=== PATIENT | female | born 1940 | race Caucasian/White ===

== ENCOUNTER → 2016-09-26 | Outpatient (CLI) | payer OTHER, MEDICARE ==
[~2016-09-26] MED LIST: ASCO1CAP3 PO; ASPI81TA28 PO; CALC-20 PO; LEVO50TA6 PO; LISI-461 PO; LOVA40TA4 PO; MULTTAB5 PO; OYST500T47 PO; TAMO20TA47 PO
--- NOTE | 2016-09-26 12:46 | MAMMOGRAPHY REPORT ---
UNILATERAL LEFT DIGITAL SCREENING MAMMOGRAM TOMOSYNTHESIS WITH CAD: 09/26/2016 CLINICAL HISTORY: Asymptomatic. Personal history of breast cancer. TECHNIQUE: Breast tomosynthesis in addition to standard 2D mammography was performed. Current study was also evaluated with a Computer Aided Detection (CAD) system. Left CC and MLO 2D and tomosynthe sis images were obtained. COMPARISON: Comparison is made to exams dated: 09/24/2015 mammogram, 08/29/2013 mammogram, 08/30/2014 mammogram, 08/25/2011 mammogram, 08/14/2010 mammogram, and 08/13/2009 mammogram - [facility]. BREAST COMPOSITION: The tissue of the left breast is almost entirely fatty. FINDINGS: There are no suspicious masses, calcifications, or areas of architectural distortion note d in the left breast. There has been no significant interval change compared to prior exams. Scatt ered benign-appearing calcifications are stable. Nodular asymmetry in the left medial breast is sta ble dating back to at least the 2009 exam. IMPRESSION: ACR BI-RADS CATEGORY 1: NEGATIVE There is no mammographic evidence of malignancy. A 1 year screening mammogram is recommended. The p atient will receive written notification of the results. Approximately 10% of breast cancers are not detected with mammography. A negative mammographic repor t should not delay biopsy if a clinically suggestive mass is present. Antonietta Mireles M.D. ah/:09/26/2016 08:48:42 Care Administrative Tech: Gia CHRISTY(Andriy)(Mirza), [facility] letter sent: Normal 1/2 BI-RADS Code: ACR BI-RADS Category 1: Negative
== END | disposition home or self-care (01) ==
LOC: C.MAMM 08:15
PROVIDERS: ATTEND Nurse Practitioner
DX: Z12.31 Encounter for screening mammogram for malignant neoplasm of breast (principal); Z85.3 Personal history of malignant neoplasm of breast; Z90.11 Acquired absence of right breast and nipple

== ENCOUNTER → 2017-05-29 | Outpatient (CLI) | payer OTHER, MEDICARE ==
[2017-05-29 12:16] LABS: BASO % 0.4 %; BASO ABS # 0.04 K/uL (0-0.2); COMPLETE YES; EOS % 1.5 %; HEMATOCRIT 42.5 % (37-47); IG% 0.3 %; LYMPH % 20.2 %; LYMPH ABS # 1.96 K/uL (1.2-3.4); MEAN CELL VOLUME 92.4 fL (80-100); MEAN CORPUSCULAR HEMOGLOBIN 29.3 pg (25-34); MEAN CORPUSCULAR HGB CONC 31.8 g/dl (32-36); MEAN PLATELET VOLUME 10.3 fL (7.4-10.4); NEUT % 71.6 %; PLATELET COUNT 276 K/uL (130-400); WHITE BLOOD COUNT 9.71 K/uL (4.8-10.8)
[2017-05-29 12:50] LABS: ESTIMATED AVERAGE GLUCOSE 117 mg/dl; HA1C FLAG Normal (Normal)
[2017-05-29 13:08] LABS: ALT/SGPT 37 U/L (12-78); BLOOD UREA NITROGEN 18 mg/dl (7-18); BUN/CREATININE RATIO 19.6 (10-20); CALCIUM 10.1 mg/dl (8.5-10.1); CARBON DIOXIDE 28 mmol/L (21-32); CHLORIDE 105 mmol/L (98-107); CHOLESTEROL 168 mg/dl (0-200); CREATININE 0.92 mg/dl (0.60-1.20); GLUCOSE 96 mg/dl (70-99); POTASSIUM 4.8 mmol/L (3.5-5.1); SODIUM 138 mmol/L (136-145)
[2017-05-29 13:17] LABS: ALB/GLOB RATIO 1.3 (0.9-2); ALKALINE PHOSPHATASE 69 U/L (45-117); AST/SGOT 24 U/L (15-37); CHOLESTEROL/HDL RATIO 3.5; HDL CHOLESTEROL 48 mg/dl; LDL CHOLESTEROL CALCULATED 76 mg/dl; TRIGLYCERIDES 221 mg/dl (0-150); VERY LOW DENSITY LIPOPROT CALC 44 mg/dl
== END | disposition home or self-care (01) ==
LOC: C.LABBFT 08:07
PROVIDERS: ATTEND Internal Medicine
DX: I10 Essential (primary) hypertension (principal); E03.9 Hypothyroidism, unspecified; E78.5 Hyperlipidemia, unspecified; R73.01 Impaired fasting glucose

== ENCOUNTER 2017-06-25 08:47 | Emergency (ER) | payer OTHER, MEDICARE ==
[~2017-06-25] VITALS: Ht 157.5 cm; Wt 65.0 kg
[~2017-06-25 08:47] MED LIST changes: -ASCO1CAP3 PO
[2017-06-25 08:52] VITALS: TEMP 36.5; Ht 157.5 cm; Wt 65.0 kg
--- NOTE | 2017-06-25 09:17 | EMERGENCY ROOM VISIT NOTE ---
History Report prepared by Kirby: Yuliya Pizarro Under the Supervision of: Dr. Humza Currie M.D. First contact with patient: 09:00 Chief Complaint: LEG PAIN,LEG INJURY Stated Complaint: LEFT LEG PAIN History of Present Illness The patient is a 76 year old female who presents to the Emergency Room with complaints of intermittent left knee pain that began last evening around 1800. She currently rates her discomfort as a 1/10 in severity. The patient states that last evening she walked down three steps and began noticing cracking and snapping to her left knee. She states that she only notices it with certain movements. The patient states that she previously had Cortizone shots in her left knee at [facility]. She states that she notices the cracking when she goes from standing to sitting. The patient denies any fall. Source of History: patient Onset: 1800 last evening Position: knee (left) Symptom Intensity: 1/10 Quality: other (cracking, snapping) Timing: intermittent Modifying Factors (Worsening): other (standing to sitting) Review of Systems See HPI for pertinent positives & negatives. A total of 6 systems reviewed and were otherwise negative. 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 (2) Hx Of Breast Malignancy (3) Hyperlipidemia Nec/Nos (4) Hypertension Nos (5) Hypothyroidism Nos Surgical Problems: (1) Acquired Absence Of Breast And Nipple Family History Heart disease Hypertension Social History Smoking Status: Never Smoker Alcohol Use: none Marital Status: Housing Status: lives with significant other Occupation Status: unemployed Current/Historical Medications Scheduled Ascorbic Acid (Vitamin C), 500 MG PO DAILY Aspirin (Aspirin Ec), 81 MG PO EVERY OTHER DAY Calcium Carbonate-Vitamin D (Calcium 600 + D), 1 TAB PO QPM Levothyroxine Sodium (Levothyroxine Sodium), 50 MCG PO QAM Lisinopril (Zestril), 10 MG PO QPM Lovastatin (Mevacor), 40 MG PO AT LUNCH Multiple Vitamins W/ Minerals (Centrum), 1 TAB PO AT LUNCH Allergies Coded Allergies: No Known Allergies (Unverified , 06/18/15) Physical Exam Vital Signs Date Time Temp Pulse Resp B/P (MAP) Pulse Ox O2 Delivery O2 Flow Rate FiO2 06/25/17 10:23 82 16 121/55 98 06/25/17 08:52 36.5 100 20 142/70 98 Room Air Physical Exam GENERAL: Patient is in no acute distress. EXTREMITIES: Strong distal pulses in left lower extremity, foot is warm, knee appears stable, she has tenderness over the medial collateral ligaments, and the area of medial meniscus, no joint effusion, patella is nontender. NEUROLOGIC: Oriented x 3, no acute motor or sensory deficits, no focal weakness. Medical Decision & Procedures ER Provider Diagnostic Interpretation: X-ray results as stated below per interpretation by me and the radiologist: L KNEE 3 VIEWS CLINICAL HISTORY: Left knee pain. COMPARISON: Left knee radiographs January 06, 2016. FINDINGS: Alignment of the left knee is anatomic. Calcific/ossific densities along the medial and lateral femoral condyles are chronic. These were present on prior exam. No fracture or suspicious osseous lesion is present. There is mild joint space narrowing and osteophytosis of the patellofemoral compartment. A small left knee joint effusion is present. Spurring of the superior pole of the patella is noted. IMPRESSION: 1. No acute fracture. 2. Small left knee joint effusion. 3. 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 Electronically signed by: Pacheco Roberto M.D. 06/25/2017 9:33 AM Dictated Date/Time: 06/25/2017 9:31 AM ED Course 0901: The patient was evaluated in room B2. A complete history and physical exam was performed. 1008: I reevaluated the patient and she is resting comfortably. I discussed the exam findings with her and I discussed the treatment plan. She verbalized complete understanding and agreement. She is ready to go home. Medical Decision The patient is a 76 year old female who presents to the ED with complaints of left knee pain. Differential diagnoses considered include Meniscus or ligament injury, joint effusion, fracture, strain. Patient presents with some pain primarily in the medial left knee. This began as she was walking downstairs, there was no fall. On exam, she was neurovascularly intact. Films of the knee show some arthritis and chronic change, no fracture, no large joint effusion. The patient's knee didn't seem stable by my exam. She is going to use Advil and ice, I have referred her to orthopedics for the possibility of ligament or meniscus injury. She is being discharged. Medication Reconcilliation Current Medication List: was personally reviewed by me Blood Pressure Screening Patient's blood pressure: Elevated blood pressure Blood pressure disposition: Elevated BP felt to be situational, Did not require urgent referral Impression Primary Impression: Left knee pain Scribe Attestation The scribe's documentation has been prepared under my direction and personally reviewed by me in its entirety. I confirm that the note above accurately reflects all work, treatment, procedures, and medical decision making performed by me. Departure Information Dispostion Home / Self-Care Referrals Kb Beach M.D. (PCP) Jerod Akers M.D. Forms HOME CARE DOCUMENTATION FORM, IMPORTANT VISIT INFORMATION Patient Instructions My [facility] [address] Additional Instructions ice may help otc motrin for a few days may help call orthopedics today for an appt no fractures by film today try to stay off your feet and rest the knee
--- NOTE | 2017-06-25 09:34 | DIAGNOSTIC IMAGING REPORT ---
L KNEE 3 VIEWS CLINICAL HISTORY: Left knee pain. COMPARISON: Left knee radiographs January 06, 2016. FINDINGS: Alignment of the left knee is anatomic. Calcific/ossific densities along the medial and lateral femoral condyles are chronic. These were present on prior exam. No fracture or suspicious osseous lesion is present. There is mild joint space narrowing and osteophytosis of the patellofemoral compartment. A small left knee joint effusion is present. Spurring of the superior pole of the patella is noted. IMPRESSION: 1. No acute fracture. 2. Small left knee joint effusion. 3. 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 Electronically signed by: Pacheco Roberto M.D. 06/25/2017 9:33 AM Dictated Date/Time: 06/25/2017 9:31 AM
[2017-06-25] MEDS ORDERED: ASCO1CAP3 PO (09:56)
[2017-06-25 10:23] VITALS: BP 121/55; PULSE 82; O2SAT 98
== END 2017-06-25 10:24 | disposition home or self-care (01) ==
LOC: C.EDB 08:49
DX: M25.562 Pain in left knee (principal); D05.90 Unspecified type of carcinoma in situ of unspecified breast; E78.5 Hyperlipidemia, unspecified; E03.9 Hypothyroidism, unspecified; I10 Essential (primary) hypertension; Z82.49 Family history of ischemic heart disease and other diseases of the circulatory system; Z79.82 Long term (current) use of aspirin

== ENCOUNTER → 2017-09-29 | Outpatient (CLI) | payer OTHER, MEDICARE ==
[~2017-09-29] MED LIST changes: +ASCO1CAP3 PO; -OYST500T47 PO; -TAMO20TA47 PO
--- NOTE | 2017-09-29 14:28 | MAMMOGRAPHY REPORT ---
UNILATERAL LEFT DIGITAL SCREENING MAMMOGRAM TOMOSYNTHESIS WITH CAD: 09/29/2017 CLINICAL HISTORY: Asymptomatic. Personal history of breast cancer. TECHNIQUE: Left breast tomosynthesis in addition to standard 2D mammography was performed. Current st udy was also evaluated with a Computer Aided Detection (CAD) system. COMPARISON: Comparison is made to exams dated: 09/26/2016 mammogram, 09/24/2015 mammogram, 08/30/2014 ma mmogram, 08/29/2013 mammogram, 08/26/2012 mammogram, and 08/25/2011 mammogram - [facility]. BREAST COMPOSITION: The tissue of the left breast is almost entirely fatty. FINDINGS: There are scattered benign-appearing calcifications in the left breast. No suspicious mass , architectural distortion or cluster of suspicious microcalcifications is seen. IMPRESSION: ACR BI-RADS CATEGORY 1: NEGATIVE There is no mammographic evidence of malignancy. A 1 year screening mammogram is recommended. The pa tient will receive written notification of the results. Approximately 10% of breast cancers are not detected with mammography. A negative mammographic report should not delay biopsy if a clinically suggestive mass is present. Sahra Alonso M.D. ay/:09/29/2017 12:21:42 Maritime Pilot: Kianna CHRISTY(Andriy)(Mirza), [facility] letter sent: Normal 1/2 BI-RADS Code: ACR BI-RADS Category 1: Negative
== END | disposition home or self-care (01) ==
LOC: C.MAMM 09:57
PROVIDERS: ATTEND Nurse Practitioner
DX: Z12.31 Encounter for screening mammogram for malignant neoplasm of breast (principal); Z85.3 Personal history of malignant neoplasm of breast; Z90.11 Acquired absence of right breast and nipple